=== PATIENT | female | born 1990 | race Caucasian/White ===

== ENCOUNTER 2023-02-14 09:31 | Inpatient (IN) | payer OTHER ==
[2023-02-14] MEDS ORDERED: Scopolamine 1.5 mg/72 hour Patch ONE (09:43)
[2023-02-14] MEDS ORDERED: Ketorolac Tromethamine 30 MG/ML VIAL ONE (10:24)
[2023-02-14] MEDS ORDERED: HYDROmorphone 0.5 MG/0.5 ML SYRINGE ONE (10:43)
[2023-02-14] MEDS ORDERED: fentaNYL PF 100 MCG/2 ML SYRINGE ONE (10:43)
[2023-02-14] MEDS ORDERED: Lidocaine 2% 6 ML (Jelly) SYR ONE (10:44)
[2023-02-14] MEDS ORDERED: Bupivacaine HCl 0.5%/Epinephrine 1:200,000/PF 30 ml Vial ONE (10:48)
[2023-02-14] MEDS ORDERED: Iopamidol 30 ML ONE (10:48)
[2023-02-14] MEDS ORDERED: SUGAMMADEX SODIUM 200 MG/2 ML VIAL ONE (10:52)
[2023-02-14] MEDS ORDERED: NEOSTIGMINE 3 MG/3 ML SYR 3 MG/3 ML SYRINGE ONE (10:53)
[2023-02-14] MEDS ORDERED: Succinylcholine 200 MG/10 ml SYRINGE FS ONE (10:53)
[2023-02-14] MEDS ORDERED: Rocuronium Bromide 10 MG/ML (10ML VIAL) ONE (10:53)
[2023-02-14] MEDS ORDERED: PROPOFOL 200 MG/20 ML VIAL ONE (10:53)
[2023-02-14] MEDS ORDERED: Glycopyrrolate 0.2 MG/ML 5 ML SYRINGE ONE (10:53)
[2023-02-14] MEDS ORDERED: Lidocaine 1% PF 5 ML VIAL ONE (10:53)
[2023-02-14] MEDS ORDERED: Promethazine HCl 25 MG/ML VIAL ONE (11:07)
[2023-02-14] MEDS ORDERED: Glucagon 1 MG/ML KIT ONE (11:29)
[2023-02-14] MEDS ORDERED: Promethazine HCl 25 MG/ML VIAL IM PRN (12:13)
[2023-02-14] MEDS ORDERED: HYDROmorphone 2 MG/ML VIAL SLOW IVP PRN (12:13)
[2023-02-14] MEDS ORDERED: Ondansetron HCl/PF 4 MG/2 ML Vial IVP PRN (12:13)
[2023-02-14] MEDS ORDERED: Morphine Sulfate 2 MG/ML SYRINGE SLOW IVP PRN (12:13)
[2023-02-14] MEDS ORDERED: PACU-Morphine 4MG/ML VIAL SLOW IVP PRN (12:13)
[2023-02-14] MEDS ORDERED: Ipratropium/Albuterol 3 ML NEB NEB PRN (12:30)
[2023-02-14] MEDS ORDERED: Morphine 4 MG/ML VIAL SLOW IVP PRN (12:30)
[2023-02-14] MEDS ORDERED: Ondansetron PF 4 MG/2 ML Vial IVP PRN (12:30)
[2023-02-14] MEDS ORDERED: Morphine 2 MG/ML VIAL SLOW IVP PRN (12:30)
[2023-02-14] MEDS ORDERED: hydrALAZINE 20 MG/ML VIAL SLOW IVP PRN (12:30)
[2023-02-14] MEDS ORDERED: Mag-Al 1200 mg/1200 mg/30 ML UDCUP PO PRN (12:30)
[2023-02-14] MEDS ORDERED: Ondansetron ODT 8 MG TAB SL PRN (12:38)
[2023-02-14] MEDS: Sodium Chloride 0.45% 1,000 ML IV SCH ×3 (15:13→22:01)
[2023-02-14] MEDS: LevoFLOXacin 750 mg/D5W 750 MG in Premix Bag 1 BAG IVPB SCH (15:13)
[2023-02-14 15:33] VITALS: BMI 30.2
[2023-02-14] MEDS: Ketorolac Tromethamine 30 MG/ML VIAL IVP SCH ×2 (17:57→23:03)
[2023-02-14] MEDS: fentaNYL 50 mcg/mL 1 mL Vial SLOW IVP PRN (21:58)
[2023-02-15] MEDS: Sodium Chloride 0.45% 1,000 ML IV SCH ×5 (03:12→23:20)
[2023-02-15] MEDS: Ketorolac Tromethamine 30 MG/ML VIAL IVP SCH ×4 (05:27→23:19)
[2023-02-15] MEDS: fentaNYL 50 mcg/mL 1 mL Vial SLOW IVP PRN ×3 (05:27→19:57)
[2023-02-15 06:37] LABS: #Monocytes 1.2 thou/uL (0.11-0.59); #Neutrophils 9.9 thou/uL (1.40-6.50); %Basophils 0.2 % (0.0-1.0); %Eosinophils 0.2 % (0.0-10.0); %Lymphocytes 8.6 % (21.0-51.0); %Neutrophils 80.4 % (42.0-75.0); Hemoglobin 12.3 g/dL (12.0-16.0); Mean Corpuscular HGB CONC 34.1 g/dL (32.0-36.0); Mean Corpuscular Hemoglobin 32.1 pg (27.0-31.0); Mean Corpuscular Volume 94.3 fl (78.0-98.0); Mean Platelet Volume 9.6 fL (7.4-10.4); Platelet Count 256 10x3/uL (130-400); Red Blood Cell (RBC) Count 3.83 mill/uL (4.20-5.40); White Blood Cell (WBC) Count 12.3 10x3/uL (4.8-10.8)
[2023-02-15 07:08] LABS: ALT (SGPT) 492 U/L (8-55); AST (SGOT) 197 U/L (5-34); Albumin 3.5 g/dL (3.5-5.0); Alkaline Phosphatase 217 U/L (40-110); Anion Gap 13 mmol/L (10-20); BUN (Urea Nitrogen) 5 mg/dL (7.0-18.7); Bilirubin, Total 1.6 mg/dL (0.2-1.2); Calc. Creatinine Clearance 135 mL/min (70-130); Calcium 8.1 mg/dL (7.8-10.44); Carbon Dioxide 22 mmol/L (22-29); Chloride 105 mmol/L (98-107); Estimated GFR 115; Globulin 2.3 g/dL (2.4-3.5); Glucose 67 mg/dL (70-105); Potassium 3.7 mmol/L (3.5-5.1); Protein, Total 5.8 g/dL (6.0-8.3); Sodium 136 mmol/L (136-145)
[2023-02-15 07:21] LABS: Lipase 2465 U/L (8-78)
[2023-02-15] MEDS: Pantoprazole 40 MG VIAL IVP SCH (07:34)
[2023-02-15] MEDS ORDERED: Iopamidol 30 ML ONE (08:29)
[2023-02-15] MEDS ORDERED: Indomethacin 50 MG SUPP ONE (08:30)
[2023-02-15] MEDS ORDERED: fentaNYL 50 mcg/mL 1 mL Vial ONE ×2 (08:43→09:07)
[2023-02-15] MEDS ORDERED: Lidocaine 1% PF 5 ML VIAL ONE (09:01)
[2023-02-15] MEDS ORDERED: Esmolol 100 MG/10 ML VIAL ONE (09:01)
[2023-02-15] MEDS ORDERED: PROPOFOL 200 MG/20 ML VIAL ONE (09:01)
[2023-02-15] MEDS ORDERED: Rocuronium Bromide 10 MG/ML (10ML VIAL) ONE (09:01)
[2023-02-15] MEDS ORDERED: PHENYLEPHRINE-NS 100 MCG/ML 10 ML SYRINGE ONE (09:01)
[2023-02-15] MEDS ORDERED: SUGAMMADEX SODIUM 200 MG/2 ML VIAL ONE (09:07)
[2023-02-15] MEDS: LevoFLOXacin 750 mg/D5W 750 MG in Premix Bag 1 BAG IVPB SCH (14:23)
[2023-02-16] MEDS: fentaNYL 50 mcg/mL 1 mL Vial SLOW IVP PRN (04:17)
[2023-02-16] MEDS: Sodium Chloride 0.45% 1,000 ML IV SCH ×2 (04:18→08:21)
[2023-02-16] MEDS: Ketorolac Tromethamine 30 MG/ML VIAL IVP SCH (05:00)
[2023-02-16 07:12] LABS: #Eosinphils 0.1 thou/uL (0.0-0.7); #Monocytes 1.2 thou/uL (0.11-0.59); #Neutrophils 6.7 thou/uL (1.40-6.50); %Basophils 0.2 % (0.0-1.0); %Eosinophils 1.3 % (0.0-10.0); %Lymphocytes 14.7 % (21.0-51.0); %Monocytes 12.5 % (0.0-10.0); %Neutrophils 71.1 % (42.0-75.0); Hemoglobin 10.3 g/dL (12.0-16.0); Mean Corpuscular HGB CONC 34.2 g/dL (32.0-36.0); Mean Corpuscular Volume 93.5 fl (78.0-98.0); Mean Platelet Volume 9.7 fL (7.4-10.4); Platelet Count 230 10x3/uL (130-400); RBC Distribution Width 11.9 % (11.5-14.5); Red Blood Cell (RBC) Count 3.22 mill/uL (4.20-5.40); White Blood Cell (WBC) Count 9.5 10x3/uL (4.8-10.8)
[2023-02-16 07:43] LABS: ALT (SGPT) 300 U/L (8-55); AST (SGOT) 75 U/L (5-34); Alkaline Phosphatase 158 U/L (40-110); Bilirubin, Direct 0.7 mg/dL (0.1-0.3); Bilirubin, Total 1.5 mg/dL (0.2-1.2); Protein, Total 5.3 g/dL (6.0-8.3)
[2023-02-16] MEDS: Pantoprazole 40 MG VIAL IVP SCH (08:21)
[2023-02-16 09:31] VITALS: BP 119/77; TEMP 98.3
== END 2023-02-16 11:56 | disposition home or self-care (01) | DRG 417 ==
LOC: SDC 09:31 → T4-B 12:38
PROVIDERS: ADMIT Specialist; ATTEND Specialist
PROC: 0FT44ZZ Resection of Gallbladder, Percutaneous Endoscopic Approach (ICD-10-PCS; principal; 2023-02-14)
PROC: BF101ZZ Fluoroscopy of Bile Ducts using Low Osmolar Contrast (ICD-10-PCS; 2023-02-14)
PROC: 0DJ08ZZ Inspection of Upper Intestinal Tract, Via Natural or Artificial Opening Endoscopic (ICD-10-PCS; 2023-02-15)
PROC: 0FJB8ZZ Inspection of Hepatobiliary Duct, Via Natural or Artificial Opening Endoscopic (ICD-10-PCS; 2023-02-15)
PROC: BF101ZZ Fluoroscopy of Bile Ducts using Low Osmolar Contrast (ICD-10-PCS; 2023-02-15)
DX: K80.66 Calculus of gallbladder and bile duct with acute and chronic cholecystitis without obstruction (principal); K85.90 Acute pancreatitis without necrosis or infection, unspecified; Z90.49 Acquired absence of other specified parts of digestive tract; Z91.018 Allergy to other foods; Z98.890 Other specified postprocedural states
CPT/HCPCS: 36415; 47532; 74330; 80053; 80076; 83690; 85025; 88304; C1889; C9113; J1170; J1611; J1650; J1885; J1956; J2272; J2405; J2550; J2704; J3010; Q9967